=== PATIENT | female | born 1950 | race Caucasian/White ===

== ENCOUNTER 2019-09-08 06:06 | Day surgery (SDC) | payer MEDICARE ==
[2019-09-08] MEDS ORDERED: fentaNYL 100 MCG/2 ML SDV ONE (07:08)
[2019-09-08] MEDS ORDERED: Propofol 200 MG/20 ML SDV ONE (07:08)
[2019-09-08] MEDS ORDERED: Midazolam 1 MG/ML 2 ML SDV ONE (07:08)
[2019-09-08] MEDS ORDERED: Sodium Chloride 0.9% 1,000 ML IV SCH (07:15)
[2019-09-08] MEDS ORDERED: ceFAZolin 2 GM in Premix Bag 1 BAG IV ONE (08:00)
[2019-09-08 09:18] VITALS: BP 116/88; PULSE 75
--- NOTE | 2019-09-08 09:45 | OR ---
DATE OF PROCEDURE: 09/08/2019 SURGEON: Denny Shearer MD PROCEDURE: Colonoscopy. FINDINGS: 1. Diverticulosis, moderate, mostly limited to sigmoid colon without evidence of diverticulitis or bleeding. 2. Ascending colon polyp, approximately 5 mm, completely removed using cold biopsy forceps. 3. Transverse colon polyp, approximately 5 mm, completely removed using cold biopsy forceps. 4. Descending colon polyp, approximately 5 mm, completely removed using cold biopsy forceps. COMPLICATIONS: None. 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 ANESTHESIA: MAC. PREOPERATIVE DIAGNOSES: History of colon polyps. POSTOPERATIVE DIAGNOSES: History of colon polyps. RISKS: Risks, benefits, alternatives, and limitations including, but not limited to, infection, bleeding, and perforation were explained to the patient, who wished to proceed. PROCEDURE IN DETAIL: The patient was placed in left lateral decubitus position. A colonoscope was introduced and advanced atraumatically to the ileocecal valve. No abnormalities were noted. The scope was brought back through the ascending, transverse, descending colon, and retroflexed. The aforementioned polyps were all identified and completely removed using cold biopsy forceps. The diverticulosis would be described as moderate, most densely concentrated in the sigmoid colon and without evidence of diverticulitis or bleeding. No abnormalities on retroflex. No other abnormalities. The patient tolerated the procedure well. Denny Shearer MD /[id number]
== END 2019-09-08 09:30 | disposition home or self-care (01) ==
LOC: JP.SDS 06:06
PROVIDERS: ATTEND Surgery
DX: Z12.11 Encounter for screening for malignant neoplasm of colon (principal); D12.3 Benign neoplasm of transverse colon; K57.30 Diverticulosis of large intestine without perforation or abscess without bleeding; I12.9 Hypertensive chronic kidney disease with stage 1 through stage 4 chronic kidney disease, or unspecified chronic kidney disease; N18.9 Chronic kidney disease, unspecified; Z86.010 Personal history of colon polyps
CPT/HCPCS: 45380; 88305; J0690; J2250; J2704; J3010; J7030

== ENCOUNTER 2021-11-25 08:22 | Day surgery (SDC) | payer MEDICARE ==
[~2021-11-25 08:22] MED LIST: Iopamidol 612 MG/ML 100 ML Bottle IV SCH; Lidocaine 4% Top Soln LTA 4 ML Syringe Kit ONE; Midazolam 1 MG/ML 2 ML SDV ONE; Propofol 200 MG/20 ML SDV ONE; Sodium Chloride 0.9% 10 ML Syringe FLUSH ONE; Sodium Chloride 0.9% 50 ML IV ONE; fentaNYL 100 MCG/2 ML SDV ONE
[2021-11-25] MEDS ORDERED: Dextrose 5%-Lactated Ringers 1,000 ML IV SCH (09:00)
[2021-11-25] MEDS ORDERED: Lidocaine 4% Top Soln 50 ML Bottle ONE (10:01)
[2021-11-25] MEDS ORDERED: Lidocaine 2% Viscous Solution 15 ML UD ONE (10:01)
[2021-11-25] MEDS ORDERED: Propofol 200 MG/20 ML SDV ONE (11:57)
[2021-11-25] MEDS ORDERED: Pantoprazole 40 MG Vial IVPUSH ONE (12:09)
[2021-11-25 13:25] VITALS: BP 124/61; PULSE 56
== END 2021-11-25 14:22 | disposition home or self-care (01) ==
LOC: JP.SDS 08:22
PROVIDERS: ATTEND Surgery
DX: K29.60 Other gastritis without bleeding (principal); K21.9 Gastro-esophageal reflux disease without esophagitis; I10 Essential (primary) hypertension; E11.9 Type 2 diabetes mellitus without complications; R05.3 Chronic cough; K44.9 Diaphragmatic hernia without obstruction or gangrene; J18.9 Pneumonia, unspecified organism; K31.89 Other diseases of stomach and duodenum; I70.0 Atherosclerosis of aorta; E66.9 Obesity, unspecified; M79.7 Fibromyalgia; Z79.899 Other long term (current) drug therapy; Z79.810 Long term (current) use of selective estrogen receptor modulators (SERMs); Z88.0 Allergy status to penicillin; Z88.7 Allergy status to serum and vaccine; Z88.1 Allergy status to other antibiotic agents; Z88.8 Allergy status to other drugs, medicaments and biological substances; Z88.2 Allergy status to sulfonamides; Z88.5 Allergy status to narcotic agent
CPT/HCPCS: 31622; 36415; 43239; 71260; 82565; 87015; 87070; 87081; 87102; 87116; 87205; 87206; 87220; A9270; C9113; J2250; J2704; J3010; J3490; J7121; Q9967

== ENCOUNTER 2021-12-13 09:58 | Inpatient (IN) | payer MEDICARE ==
[~2021-12-13 09:58] MED LIST changes: +Dexamethasone 4 MG/ML SDV ONE; +Glycopyrrolate 0.2 MG/ML 5 ML MDV ONE; -Iopamidol 612 MG/ML 100 ML Bottle IV SCH; -Lidocaine 4% Top Soln LTA 4 ML Syringe Kit ONE; -Midazolam 1 MG/ML 2 ML SDV ONE; +Neostigmine Methylsulfate 1 MG/ML 5 ML Syringe ONE; +Ondansetron 4 MG/2 ML SDV ONE; +Rocuronium 50 MG/5 ML Vial ONE; -Sodium Chloride 0.9% 10 ML Syringe FLUSH ONE; -Sodium Chloride 0.9% 50 ML IV ONE; +Succinylcholine 200 MG/10 ML MDV ONE; -fentaNYL 100 MCG/2 ML SDV ONE; +fentaNYL 250 MCG/5 ML SDV ONE
[2021-12-13] MEDS ORDERED: Acetaminophen 500 MG Tab PO ONE (11:00)
[2021-12-13] MEDS ORDERED: Scopolamine 1.5 MG Transdermal Patch TOP ONE (11:00)
[2021-12-13] MEDS ORDERED: Dextrose 5%-Lactated Ringers 1,000 ML IV SCH ×2 (11:30→16:45)
[2021-12-13] MEDS ORDERED: Ropivacaine 46 ML, dexAMETHasone 8 MG, EPINEPHrine 0.4 MG, Sodium Chloride 0.9% 31.6 ML NERVRT SCH ×4 (12:15)
[2021-12-13] MEDS ORDERED: Ketamine 16 MG in Sodium Chloride 0.9% 19.84 ML IV SCH (12:15)
[2021-12-13] MEDS ORDERED: Ketamine 500 MG/5 ML MDV IV SCH (12:15)
[2021-12-13] MEDS: ceFAZolin 2 GM in Sodium Chloride 0.9% 50 ML IV ONE ×2 (13:00→13:01)
[2021-12-13] MEDS ORDERED: Bupivacaine 0.5%/EPINEPHrine 1:200,000 50 ML MDV ONE (13:03)
[2021-12-13] MEDS ORDERED: Lidocaine 1% 50 ML MDV ONE (13:03)
[2021-12-13] MEDS ORDERED: ePHEDrine 50 MG/ML SDV ONE (13:19)
[2021-12-13] MEDS ORDERED: fentaNYL 250 MCG/5 ML SDV ONE (13:34)
[2021-12-13] MEDS ORDERED: Labetalol 20 MG/4 ML Syringe ONE (13:36)
[2021-12-13] MEDS ORDERED: Meropenem 500 MG SDV ONE (13:52)
[2021-12-13] MEDS ORDERED: Lactated Ringers 1,000 ML ONE (14:07)
[2021-12-13] MEDS ORDERED: Rocuronium 50 MG/5 ML Vial ONE (14:32)
[2021-12-13] MEDS ORDERED: diphenhydrAMINE 25 MG Cap PO PRN ×2 (15:13→17:29)
[2021-12-13] MEDS ORDERED: HYDROmorphone/Normal Saline 6 MG/30 ML PCA Vial IV PRN ×2 (15:13→17:30)
[2021-12-13] MEDS ORDERED: diphenhydrAMINE 50 MG/ML SDV IVPUSH PRN ×2 (15:13→17:28)
[2021-12-13] MEDS ORDERED: Ondansetron 4 MG/2 ML SDV IVPUSH PRN ×2 (15:13→17:37)
[2021-12-13] MEDS ORDERED: Naloxone 0.4 MG/ML SDV IVPUSH PRN ×2 (15:13→17:36)
[2021-12-13] MEDS ORDERED: 50% Dextrose in Water 50 ML Syringe IVPUSH PRN ×2 (15:28→17:28)
[2021-12-13] MEDS ORDERED: Insulin Lispro 100 Unit/ML 3 ML KwikPen SUBCUT ONE (15:28)
[2021-12-13] MEDS ORDERED: Glucagon,Human Recombinant 1 MG Vial IM PRN ×2 (15:28→17:29)
[2021-12-13] MEDS ORDERED: Cyclobenzaprine 10 MG Tab PO PRN ×2 (16:32→17:25)
[2021-12-13] MEDS ORDERED: MVI, Adult with Vitamin K 10 ML, Thiamine 200 MG, Zinc/Copper/Manganese/Selenium 1 ML i... IV SCH ×8 (17:00→18:00)
[2021-12-13] MEDS ORDERED: Metoclopramide 10 MG/2 ML SDV IVPUSH PRN ×2 (17:00→17:34)
[2021-12-13] MEDS ORDERED: Acetaminophen 500 MG Tab PO PRN ×2 (17:00→17:22)
[2021-12-13] MEDS ORDERED: Labetalol 20 MG/4 ML Syringe IVPUSH PRN ×2 (17:00→17:33)
[2021-12-13] MEDS ORDERED: hydrOXYzine HCL 100 MG/2 ML SDV IM PRN ×2 (17:00→17:31)
[2021-12-13] MEDS ORDERED: Acetaminophen 500 MG Tab PO SCH (17:00)
[2021-12-13] MEDS ORDERED: Pantoprazole 40 MG Vial IVPUSH SCH (17:00)
[2021-12-13] MEDS: Acetaminophen 500 MG Tab PO SCH ×2 (18:03→22:33)
[2021-12-13] MEDS: Pantoprazole 40 MG Vial IVPUSH SCH (18:04)
[2021-12-13] MEDS: ceFAZolin 2 GM in Sodium Chloride 0.9% 50 ML IV SCH (19:53)
[2021-12-13] MEDS ORDERED: ceFAZolin 2 GM in Sodium Chloride 0.9% 50 ML IV SCH (20:00)
[2021-12-13] MEDS: Hypromellose 0.3% Ophth Soln 15 ML Bottle EYEBOTH SCH (21:39)
[2021-12-13] MEDS ORDERED: Insulin Lispro 100 Unit/ML 3 ML KwikPen SUBCUT SCH (22:00)
[2021-12-13] MEDS ORDERED: Hypromellose 0.3% Ophth Soln 15 ML Bottle EYEBOTH SCH (22:00)
[2021-12-13] MEDS: Insulin Lispro 100 Unit/ML 3 ML KwikPen SUBCUT SCH (22:34)
[2021-12-14] MEDS: Dextrose 5%-Lactated Ringers 1,000 ML IV SCH ×2 (01:18→08:32)
[2021-12-14] MEDS: Acetaminophen 500 MG Tab PO SCH ×4 (04:27→22:04)
[2021-12-14] MEDS: Insulin Lispro 100 Unit/ML 3 ML KwikPen SUBCUT SCH ×4 (04:27→22:00)
[2021-12-14] MEDS: ceFAZolin 2 GM in Sodium Chloride 0.9% 50 ML IV SCH ×2 (04:27→12:50)
[2021-12-14 05:12] LABS: ESTIMATED GFR 43 mL/min (>60)
[2021-12-14] MEDS: Hypromellose 0.3% Ophth Soln 15 ML Bottle EYEBOTH SCH ×4 (07:32→22:04)
[2021-12-14] MEDS: metFORMIN 500 MG Tab PO SCH (08:25)
[2021-12-14] MEDS: Hydrochlorothiazide 12.5 MG Cap PO SCH (08:26)
[2021-12-14] MEDS: Aspirin 81 MG Tab.EC PO SCH (08:26)
[2021-12-14] MEDS: Celecoxib 200 MG Cap PO SCH ×2 (08:26→20:02)
[2021-12-14] MEDS: SCOPOLAMINE PATCH CHECK TOP SCH (08:27)
[2021-12-14] MEDS ORDERED: Aspirin 81 MG Tab.EC PO SCH (09:00)
[2021-12-14] MEDS ORDERED: Hydrochlorothiazide 12.5 MG Cap PO SCH (09:00)
[2021-12-14] MEDS ORDERED: Celecoxib 200 MG Cap PO SCH (09:00)
[2021-12-14] MEDS ORDERED: Tamoxifen 10 MG Tab PO SCH (09:00)
[2021-12-14] MEDS ORDERED: Sertraline 25 MG Tab PO SCH (09:00)
[2021-12-14] MEDS ORDERED: SCOPOLAMINE PATCH CHECK TOP SCH (09:00)
[2021-12-14] MEDS ORDERED: metFORMIN 500 MG Tab PO SCH (09:00)
[2021-12-14] MEDS ORDERED: Cetirizine 10 MG Tab PO SCH (09:00)
[2021-12-14] MEDS: Tamoxifen 10 MG Tab PO SCH (09:09)
[2021-12-14] MEDS ORDERED: Tranexamic Acid 1,000 MG in Sodium Chloride 0.9% 500 ML IV ONE ×2 (10:29→14:30)
[2021-12-14] MEDS ORDERED: Lactated Ringers 500 ML IV SCH (10:30)
[2021-12-14] MEDS ORDERED: Coagulation Factor VIIa Recombinant (per MCG) 2 MG Vial IVPUSH ONE (10:55)
[2021-12-14] MEDS ORDERED: Tranexamic Acid 1,000 MG in Sodium Chloride 0.9% 50 ML IV ONE ×2 (11:00→15:00)
[2021-12-14] MEDS: Lactated Ringers 1,000 ML IV SCH ×2 (11:43→22:12)
[2021-12-14] MEDS: Docusate Sodium 100 MG Cap PO SCH ×2 (12:03→20:02)
[2021-12-14] MEDS: Bisacodyl 5 MG Tab PO SCH ×2 (12:03→20:01)
[2021-12-14] MEDS ORDERED: MVI, Adult with Vitamin K 10 ML, Thiamine 200 MG, Zinc/Copper/Manganese/Selenium 1 ML i... IV SCH ×8 (16:00)
[2021-12-14] MEDS: Pantoprazole 40 MG Vial IVPUSH SCH (17:06)
[2021-12-14] MEDS: atorvaSTATin 10 MG Tab PO SCH (20:02)
[2021-12-14] MEDS ORDERED: atorvaSTATin 10 MG Tab PO SCH (21:00)
[2021-12-15] MEDS: Insulin Lispro 100 Unit/ML 3 ML KwikPen SUBCUT SCH ×3 (04:48→17:00)
[2021-12-15] MEDS: Acetaminophen 500 MG Tab PO SCH ×3 (05:36→16:35)
[2021-12-15] MEDS: Hypromellose 0.3% Ophth Soln 15 ML Bottle EYEBOTH SCH ×4 (07:16→21:03)
[2021-12-15] MEDS: Bisacodyl 5 MG Tab PO SCH ×2 (08:54→21:03)
[2021-12-15] MEDS: Celecoxib 200 MG Cap PO SCH ×2 (08:54→21:03)
[2021-12-15] MEDS: Docusate Sodium 100 MG Cap PO SCH ×2 (08:54→21:03)
[2021-12-15] MEDS: metFORMIN 500 MG Tab PO SCH (08:54)
[2021-12-15] MEDS: Hydrochlorothiazide 12.5 MG Cap PO SCH (08:55)
[2021-12-15] MEDS: Aspirin 81 MG Tab.EC PO SCH (08:55)
[2021-12-15] MEDS: Tamoxifen 10 MG Tab PO SCH (08:55)
[2021-12-15] MEDS: SCOPOLAMINE PATCH CHECK TOP SCH (09:29)
[2021-12-15] MEDS ORDERED: HYDROmorphone 2 MG Tab PO PRN (09:35)
[2021-12-15] MEDS ORDERED: Sodium Chloride 0.9% 10 ML Syringe IV PRN (09:40)
[2021-12-15] MEDS ORDERED: Furosemide 20 MG/2 ML VIAL IVPUSH ONE (14:45)
[2021-12-15] MEDS: Pantoprazole 40 MG Vial IVPUSH SCH (17:40)
[2021-12-15] MEDS: atorvaSTATin 10 MG Tab PO SCH (21:03)
[2021-12-16] MEDS: Acetaminophen 500 MG Tab PO SCH ×3 (01:16→10:12)
[2021-12-16 05:33] LABS: ESTIMATED GFR 48 mL/min (>60)
[2021-12-16] MEDS: Hypromellose 0.3% Ophth Soln 15 ML Bottle EYEBOTH SCH ×2 (06:00→10:12)
[2021-12-16 07:52] VITALS: BP 129/74; PULSE 75
[2021-12-16] MEDS: Celecoxib 200 MG Cap PO SCH (08:44)
[2021-12-16] MEDS: Bisacodyl 5 MG Tab PO SCH (08:44)
[2021-12-16] MEDS: Aspirin 81 MG Tab.EC PO SCH (08:45)
[2021-12-16] MEDS: metFORMIN 500 MG Tab PO SCH (08:45)
[2021-12-16] MEDS: Hydrochlorothiazide 12.5 MG Cap PO SCH (08:45)
[2021-12-16] MEDS: Docusate Sodium 100 MG Cap PO SCH (08:45)
[2021-12-16] MEDS: Tamoxifen 10 MG Tab PO SCH (08:46)
[2021-12-16] MEDS: SCOPOLAMINE PATCH CHECK TOP SCH (08:47)
[2021-12-16] MEDS ORDERED: Pantoprazole 40 MG Delayed-Release Granules 1 Packet PO SCH (16:30)
== END 2021-12-16 10:20 | disposition home or self-care (01) | DRG 327 ==
LOC: JP.SDS 09:58 → JP.MS 09:58 → EDSTATUS 12:30 → JP.2SS 16:04
PROVIDERS: ADMIT Surgery; ATTEND Surgery
PROC: 0BQT4ZZ Repair Diaphragm, Percutaneous Endoscopic Approach (ICD-10-PCS; principal; 2021-12-13)
PROC: 0DQ54ZZ Repair Esophagus, Percutaneous Endoscopic Approach (ICD-10-PCS; 2021-12-13)
PROC: 0JB63ZZ Excision of Chest Subcutaneous Tissue and Fascia, Percutaneous Approach (ICD-10-PCS; 2021-12-13)
DX: K44.9 Diaphragmatic hernia without obstruction or gangrene (principal); K91.71 Accidental puncture and laceration of a digestive system organ or structure during a digestive system procedure; K21.9 Gastro-esophageal reflux disease without esophagitis; D17.4 Benign lipomatous neoplasm of intrathoracic organs; E78.5 Hyperlipidemia, unspecified; M79.7 Fibromyalgia; E61.1 Iron deficiency; F32.9 Major depressive disorder, single episode, unspecified; M47.816 Spondylosis without myelopathy or radiculopathy, lumbar region; M19.011 Primary osteoarthritis, right shoulder; M19.041 Primary osteoarthritis, right hand; N18.30 Chronic kidney disease, stage 3 unspecified; M72.2 Plantar fascial fibromatosis; M77.9 Enthesopathy, unspecified; I70.0 Atherosclerosis of aorta; Z86.010 Personal history of colon polyps; Z79.82 Long term (current) use of aspirin; Z79.84 Long term (current) use of oral hypoglycemic drugs; Z85.3 Personal history of malignant neoplasm of breast; Z90.11 Acquired absence of right breast and nipple; Z79.899 Other long term (current) drug therapy; Z88.0 Allergy status to penicillin; Z88.2 Allergy status to sulfonamides; Z88.8 Allergy status to other drugs, medicaments and biological substances; Z88.7 Allergy status to serum and vaccine; Z87.891 Personal history of nicotine dependence; I11.0 Hypertensive heart disease with heart failure; E11.22 Type 2 diabetes mellitus with diabetic chronic kidney disease; Y83.8 Other surgical procedures as the cause of abnormal reaction of the patient, or of later complication, without mention of misadventure at the time of the procedure
CPT/HCPCS: 36415; 36430; 80053; 82947; 83735; 83880; 84100; 85025; 86850; 86900; 86901; 86920; 86922; 88302; 93005; A9270-GY; C1713; C1781; C9113; J0171; J0330; J0690; J1100; J1170; J1815; J1940; J2001; J2185; J2405; J2704; J2710; J2795; J3010; J3411; J3490; J7120; J7121; J7189; P9016

== ENCOUNTER 2021-12-20 10:50 | Emergency (ER) | payer MEDICARE ==
[2021-12-20 11:03] VITALS: BP 142/80; PULSE 84
== END 2021-12-20 12:32 | disposition home or self-care (01) ==
LOC: JP.ED 10:50
DX: R55 Syncope and collapse (principal); E11.22 Type 2 diabetes mellitus with diabetic chronic kidney disease; I12.9 Hypertensive chronic kidney disease with stage 1 through stage 4 chronic kidney disease, or unspecified chronic kidney disease; N18.9 Chronic kidney disease, unspecified; D63.1 Anemia in chronic kidney disease; E66.9 Obesity, unspecified; E78.00 Pure hypercholesterolemia, unspecified; Z91.018 Allergy to other foods; Z88.0 Allergy status to penicillin; Z88.5 Allergy status to narcotic agent; Z88.7 Allergy status to serum and vaccine; Z88.6 Allergy status to analgesic agent
CPT/HCPCS: 36415; 80048; 85027; 93005; 99285

== ENCOUNTER 2022-08-18 16:25 | Day surgery (SDC) | payer MEDICARE ==
[2022-08-18] MEDS ORDERED: ceFAZolin 2 GM in Sodium Chloride 0.9% 50 ML IV ONE (17:34)
[2022-08-18 17:43] LABS: BASOPHILS ABSOLUTE AUTO 0.07 K/uL (0.00-0.10); BASOPHILS PERCENT AUTO 0.7 % (0.1-1.3); EOSINOPHILS ABSOLUTE AUTO 0.45 K/uL (0.00-0.40); EOSINOPHILS PERCENT AUTO 4.7 % (0.0-5.4); HEMATOCRIT 39.6 % (34.3-46.0); HEMOGLOBIN 12.3 g/dL (11.2-15.5); IMMATURE GRAN ABSOLUTE AUTO 0.07 K/uL (0.00-0.23); IMMATURE GRAN PERCENT AUTO 0.7 % (0.0-0.7); LYMPHOCYTES ABSOLUTE AUTO 1.61 K/uL (0.8-3.3); LYMPHOCYTES PERCENT AUTO 16.7 % (11.4-47.7); MEAN CORPUSCULAR HEMOGLOBIN 26.7 pg (31.6-35.5); MEAN CORPUSCULAR HGB CONC 31.1 g/dL (31.6-35.5); MEAN CORPUSCULAR VOLUME 85.9 fL (81.4-99.0); MONOCYTES ABSOLUTE AUTO 0.48 K/uL (0.20-0.90); NEUTROPHILS ABSOLUTE AUTO 6.96 K/uL (1.0-7.6); NEUTROPHILS PERCENT AUTO 72.2 % (40.0-78.1); PLATELET COUNT,PLT 149 K/uL (130-375); RED BLOOD CELL COUNT 4.61 M/uL (3.77-5.24); WHITE BLOOD CELL COUNT,WBC 9.6 K/uL (3.2-11.0)
[2022-08-18] MEDS ORDERED: Bupivacaine 0.5% 30 ML SDV ONE (17:56)
[2022-08-18 18:04] LABS: A/G RATIO 0.8 (1.2-2.2); ALANINE AMINOTRANSFERASE,ALT 18 U/L (12-78); ALBUMIN 2.8 g/dL (3.4-5.0); ALKALINE PHOSPHATASE 83 U/L (46-116); ANION GAP 6.6 mmol/L (5.0-14.0); ASPARTATE AMNIOTRANSFERASE,AST 16 U/L (15-37); BILIRUBIN TOTAL 0.3 mg/dL (0.2-1.0); BLOOD UREA NITROGEN,BUN 21 mg/dL (7-18); CALCIUM 8.7 mg/dL (8.5-10.1); CARBON DIOXIDE,CO2 30 mmol/L (21-32); CHLORIDE,CL 103 mmol/L (100-108); CREATININE 1.3 mg/dL (0.6-1.0); EST CRCL DRUG DOSING (CG) 32.78 mL/min; ESTIMATED GFR 43 mL/min (>60); GLUCOSE RANDOM 131 mg/dL (74-106); PROTEIN TOTAL,TP 6.3 g/dL (6.4-8.2); SODIUM,NA 140 mmol/L (140-148)
[2022-08-18] MEDS ORDERED: fentaNYL 250 MCG/5 ML SDV ONE (18:14)
[2022-08-18] MEDS ORDERED: Ondansetron 4 MG/2 ML SDV ONE (18:15)
[2022-08-18] MEDS ORDERED: Dexamethasone 4 MG/ML SDV ONE (18:15)
[2022-08-18] MEDS ORDERED: Neostigmine Methylsulfate 1 MG/ML 5 ML Syringe ONE (18:15)
[2022-08-18] MEDS ORDERED: Rocuronium 50 MG/5 ML Vial ONE (18:15)
[2022-08-18] MEDS ORDERED: Glycopyrrolate 0.2 MG/ML 5 ML MDV ONE (18:15)
[2022-08-18] MEDS ORDERED: Propofol 200 MG/20 ML SDV ONE (18:15)
[2022-08-18] MEDS ORDERED: Succinylcholine 200 MG/10 ML MDV ONE (18:15)
[2022-08-18] MEDS ORDERED: ePHEDrine 50 MG/ML SDV ONE (19:02)
[2022-08-18] MEDS ORDERED: Morphine 2 MG/ML SYRINGE IVPUSH PRN (19:52)
[2022-08-18] MEDS ORDERED: Acetaminophen 325 MG Tab PO PRN (19:52)
[2022-08-18] MEDS ORDERED: Docusate Sodium 100 MG Cap PO PRN (19:52)
[2022-08-18] MEDS ORDERED: Ondansetron 4 MG Tab.DIS PO PRN (19:52)
[2022-08-18] MEDS ORDERED: Acetaminophen/HYDROcodone 325-5 MG Tab PO PRN ×2 (19:52→20:04)
[2022-08-18] MEDS ORDERED: Magnesium Hydroxide 400 MG/5 ML Susp 30 ML Cup PO PRN (19:52)
[2022-08-18] MEDS ORDERED: traMADol 50 MG Tab PO PRN (19:52)
[2022-08-18] MEDS ORDERED: Sodium Chloride 0.9% 1,000 ML IV SCH (20:00)
[2022-08-18] MEDS ORDERED: Acetaminophen/oxyCODONE 325-5 MG Tab PO PRN (20:03)
[2022-08-18] MEDS ORDERED: Non-Formulary Medication 1 Each (Simvastatin [Simvastatin] 20 MG Tablet) PO SCH (21:00)
[2022-08-18] MEDS ORDERED: Nozin Nasal Sanitizer NASBOTH ONE (21:00)
[2022-08-18] MEDS ORDERED: atorvaSTATin 10 MG Tab PO SCH (21:30)
[2022-08-18] MEDS: Hypromellose 0.3% Ophth Soln 15 ML Bottle EYEBOTH SCH (22:25)
[2022-08-19] MEDS: Hypromellose 0.3% Ophth Soln 15 ML Bottle EYEBOTH SCH ×3 (06:40→09:08)
[2022-08-19 07:10] VITALS: BP 136/71; PULSE 73
[2022-08-19] MEDS ORDERED: metFORMIN 500 MG Tab PO SCH (08:00)
[2022-08-19] MEDS ORDERED: Sertraline 25 MG Tab PO SCH (09:00)
[2022-08-19] MEDS ORDERED: Tamoxifen 10 MG Tab PO SCH (09:00)
[2022-08-19] MEDS ORDERED: Hydrochlorothiazide 12.5 MG Cap PO SCH (09:00)
[2022-08-20] MEDS ORDERED: Sertraline 25 MG Tab PO SCH (09:00)
== END 2022-08-19 14:45 | disposition home or self-care (01) ==
LOC: JP.ED 16:25 → JP.MS 17:13 → JP.SDS 17:13
PROVIDERS: ATTEND Specialist
DX: S82.841A Displaced bimalleolar fracture of right lower leg, initial encounter for closed fracture (principal); E11.22 Type 2 diabetes mellitus with diabetic chronic kidney disease; I12.9 Hypertensive chronic kidney disease with stage 1 through stage 4 chronic kidney disease, or unspecified chronic kidney disease; N18.9 Chronic kidney disease, unspecified; K21.9 Gastro-esophageal reflux disease without esophagitis; F32.A Depression, unspecified; D50.9 Iron deficiency anemia, unspecified; M19.90 Unspecified osteoarthritis, unspecified site; E78.00 Pure hypercholesterolemia, unspecified; E66.9 Obesity, unspecified; Z20.822 Contact with and (suspected) exposure to COVID-19; Z68.30 Body mass index [BMI] 30.0-30.9, adult; Z90.49 Acquired absence of other specified parts of digestive tract; Z88.0 Allergy status to penicillin; Z88.6 Allergy status to analgesic agent; Z88.2 Allergy status to sulfonamides; Z88.8 Allergy status to other drugs, medicaments and biological substances; Z79.82 Long term (current) use of aspirin; Z79.84 Long term (current) use of oral hypoglycemic drugs; Z79.899 Other long term (current) drug therapy; Z90.09 Acquired absence of other part of head and neck; Z90.710 Acquired absence of both cervix and uterus; Z96.659 Presence of unspecified artificial knee joint; X50.1XXA Overexertion from prolonged static or awkward postures, initial encounter; Y92.096 Garden or yard of other non-institutional residence as the place of occurrence of the external cause
CPT/HCPCS: 27814; 36415; 73600; 76000; 80053; 85025; 96365; 97116; 97161; 97165; 99284; 99285; A9270; C1713; J0330; J0690; J1100; J2405; J2704; J2710; J3010; J3490; U0002

== ENCOUNTER → 2023-05-28 | Day surgery (SDC) | payer MEDICARE ==
[2023-05-28] MEDS: Sodium Chloride 0.9% 10 ML Syringe FLUSH PRN (06:51)
[2023-05-28 08:09] VITALS: BP 165/82; PULSE 64
== END ==
LOC: JP.SDS 06:27
PROVIDERS: ATTEND Ophthalmology
DX: E11.36 Type 2 diabetes mellitus with diabetic cataract (principal); I12.9 Hypertensive chronic kidney disease with stage 1 through stage 4 chronic kidney disease, or unspecified chronic kidney disease; E11.22 Type 2 diabetes mellitus with diabetic chronic kidney disease; N18.30 Chronic kidney disease, stage 3 unspecified; K21.9 Gastro-esophageal reflux disease without esophagitis; F32.A Depression, unspecified; E66.9 Obesity, unspecified; Z68.33 Body mass index [BMI] 33.0-33.9, adult; E78.5 Hyperlipidemia, unspecified; Z88.0 Allergy status to penicillin; Z91.018 Allergy to other foods; Z88.8 Allergy status to other drugs, medicaments and biological substances
CPT/HCPCS: J3490; V2632

== ENCOUNTER 2023-06-11 05:58 | Day surgery (SDC) | payer MEDICARE ==
[2023-06-11] MEDS: Sodium Chloride 0.9% 10 ML Syringe FLUSH PRN (06:20)
[2023-06-11 07:38] VITALS: BP 148/86; PULSE 68
== END 2023-06-11 07:50 | disposition home or self-care (01) ==
LOC: JP.SDS 05:58
PROVIDERS: ATTEND Ophthalmology
DX: H26.9 Unspecified cataract (principal); I12.9 Hypertensive chronic kidney disease with stage 1 through stage 4 chronic kidney disease, or unspecified chronic kidney disease; E11.22 Type 2 diabetes mellitus with diabetic chronic kidney disease; N18.9 Chronic kidney disease, unspecified; K21.9 Gastro-esophageal reflux disease without esophagitis; F32.A Depression, unspecified
CPT/HCPCS: 66984; J3490; V2632

== ENCOUNTER 2024-09-19 06:46 | Day surgery (SDC) | payer MEDICARE ==
[2024-09-19] MEDS ORDERED: Propofol 200 MG/20 ML SDV ONE (07:03)
[2024-09-19] MEDS ORDERED: fentaNYL 50 MCG/ML SDV ONE (07:03)
[2024-09-19] MEDS: Lactated Ringers 1,000 ML IV SCH (07:45)
[2024-09-19 09:53] VITALS: BP 130/85; PULSE 81
== END 2024-09-19 10:12 | disposition home or self-care (01) ==
LOC: JP.SDS 06:46
PROVIDERS: ATTEND Surgery
DX: Z12.11 Encounter for screening for malignant neoplasm of colon (principal); K57.30 Diverticulosis of large intestine without perforation or abscess without bleeding; Z86.0100 Personal history of colon polyps, unspecified; I12.9 Hypertensive chronic kidney disease with stage 1 through stage 4 chronic kidney disease, or unspecified chronic kidney disease; K21.9 Gastro-esophageal reflux disease without esophagitis; E11.22 Type 2 diabetes mellitus with diabetic chronic kidney disease; N18.9 Chronic kidney disease, unspecified
CPT/HCPCS: G0121; J2704; J3010; J7120

== ENCOUNTER 2025-02-15 09:21 | Day surgery (SDC) | payer MEDICARE ==
[2025-02-15] MEDS: Lactated Ringers 1,000 ML IV SCH (09:44)
[2025-02-15] MEDS ORDERED: Propofol 200 MG/20 ML SDV ONE (10:05)
[2025-02-15 12:25] VITALS: BP 153/78; PULSE 69
== END 2025-02-15 12:29 | disposition home or self-care (01) ==
LOC: JP.SDS 09:21
PROVIDERS: ATTEND Surgery
DX: K29.50 Unspecified chronic gastritis without bleeding (principal); K22.89 Other specified disease of esophagus; K20.90 Esophagitis, unspecified without bleeding; D50.9 Iron deficiency anemia, unspecified; E78.00 Pure hypercholesterolemia, unspecified; I10 Essential (primary) hypertension; E11.9 Type 2 diabetes mellitus without complications; E66.9 Obesity, unspecified; Z88.8 Allergy status to other drugs, medicaments and biological substances; Z88.0 Allergy status to penicillin; Z68.30 Body mass index [BMI] 30.0-30.9, adult; Z79.82 Long term (current) use of aspirin; Z79.84 Long term (current) use of oral hypoglycemic drugs; Z79.899 Other long term (current) drug therapy
CPT/HCPCS: 00731; 43239; J2704; J7120; 88305